=== PATIENT | female | born 1930 | race Caucasian/White ===

== ENCOUNTER → 2018-04-21 | Outpatient (CLI) | payer MEDICARE, OTHER, MEDICAID ==
[~2018-04-21] MED LIST: ARIMIDEX1 MG PO; ISOSORBIDE MONO30 M1 PO; LIPITOR10 MG PO; MYRBETRIQ50 MG PO; TOPROL XL25 MG PO; [UNRECOGNIZED DRUG - OTHER] PO
[2018-04-21 14:35] VITALS: BP 137/66
--- NOTE | 2018-04-21 15:49 | NUR ---
ARRIVED PER WHEELCHAIR WITH DAUGHTER. TRANSFERED SELF TO RECLINER. HISTORY AND VS OBTAINED AND STABLE. INFUSION STARTED AND RUNNING WELL. DENIES CURRENT NEEDS. DAUGHTER REMAINES AT CHAIRSIDE.
[2018-04-21 17:12] VITALS: BP 156/77
--- NOTE | 2018-04-21 17:26 | NUR ---
Pt completed IV infusion at 171, pt stated that her dizziness is much improved. IV removed and assisted pt to bathroom via w/c with daughter by her side. Pt out to daughters car via wc at 1715.
== END ==
LOC: M.INFUS 14:00
DX: E86.0 Dehydration (principal)